=== PATIENT | male | born 1975 | race Caucasian/White ===

== ENCOUNTER → 2019-03-28 17:12 | Outpatient (CLI) | payer OTHER, SELFPAY ==
--- NOTE | 2019-03-28 17:19 | DI.MRI.S_ITS ---
PROCEDURE: MR SHOULDER LT WO CON INDICATIONS: UNSPECIFIED INJURY OF MUSCLE(S)AND TENDON(S) TECHNIQUE: Noncontrast oblique coronal T2 fast spin echo with fat saturation, oblique sagittal T1 spin echo and T2 fast spin echo with fat saturation, axial T1 spin echo and T2 fast spin echo with fat saturation through the shoulder. COMPARISON: None. FINDINGS: Image quality: Excellent. Rotator cuff: Tendinosis and low-grade articular and bursal surface partial-thickness tear involving distal supraspinatus and infraspinatus at their insertions on humeral head is seen extending to the musculotendinous junction. Distal subscapularis tendinosis is seen. No full-thickness rotator cuff tendon rupture. Sagittal images demonstrate no significant rotator cuff muscle atrophy. Bones and bursae: No bone marrow contusions or fractures. 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 Mild to moderate glenohumeral joint osteoarthritis is also noted. Small to moderate amount of glenohumeral joint fluid and small amount of subacromial subdeltoid bursal fluid is seen. No gross intra-articular loose body. Capsule and soft tissues: In the absence of intra-articular contrast, there is signal abnormality and contour irregularity involving superior anterior labrum at 12 to 2:00 position suspicious for a superior anterior labral tear. Contour irregularity and signal abnormality involving posterior inferior labrum at 7 to 8:00 position is also seen. The glenohumeral ligaments appear intact. Tendinosis and partial-thickness tear involving proximal intra-articular portion of long head biceps tendon is seen. The rotator interval appears normal, without fibrosis. The coracohumeral ligament is normal in thickness. IMPRESSION: 1. Tendinosis and low-grade articular and bursal surface partial-thickness tear involving distal supraspinatus and infraspinatus extending to musculotendinous junction. Distal subscapularis tendinosis. No full-thickness rotator cuff tendon rupture. 2. Tendinosis and low to moderate grade partial-thickness involving proximal intra-articular portion of long head of biceps tendon. 3. Finding is suggestive of superior anterior labral tear a 12 to 2:00 position and posterior inferior labral tear at 7 to 8:00 position. 4. Moderate acromioclavicular joint osteoarthritis and mild to moderate glenohumeral joint arthritis. Moderate amount of joint effusion. No gross intra-articular loose body. Dictated by: Robinson Dodson M.D. on 03/29/2019 at 8:56 Approved by: Robinson Dodson M.D. on 03/29/2019 at 9:00
== END ==
DX: S46.012A Strain of muscle(s) and tendon(s) of the rotator cuff of left shoulder, initial encounter (principal); S46.112A Strain of muscle, fascia and tendon of long head of biceps, left arm, initial encounter; M19.012 Primary osteoarthritis, left shoulder; M25.412 Effusion, left shoulder; X58.XXXA Exposure to other specified factors, initial encounter
CPT/HCPCS: 73221